=== PATIENT | male | born 1940 | race Caucasian/White ===

== ENCOUNTER 2022-03-13 09:39 | Inpatient (IN) | payer OTHER, MEDICARE ==
[~2022-03-13] VITALS: Ht 182.9 cm; Wt 81.8 kg
[~2022-03-13 09:39] MED LIST: ASA81 PO; CARV25TA55 PO; CLOP75TA2 PO; FENO160 PO; GABA-531 PO; HYDR-4039 PO; LEVO500T20 PO; LIP20 PO; NOR10 PO; TRIH2TAB3 PO; VALS320T2 PO
[2022-03-13 10:06] VITALS: BP_SYST 113
[2022-03-13 10:26] LABS: BASOPHILS # (AUTO) 0.1 K/uL (0.0-0.2); BASOPHILS % (AUTO) 0.9 % (0.0-2.0); EOSINOPHILS # (AUTO) 0.1 K/uL (0.0-0.4); EOSINOPHILS % (AUTO) 0.8 % (0.0-4.0); HEMATOCRIT 41.1 % (36-54); HEMOGLOBIN 13.3 g/dL (14.0-18.0); LYMPHOCYTES % (AUTO) 8.6 % (20.5-51.5); MEAN CORPUSCULAR HEMOGLOBIN 29 pg (27-31); MEAN CORPUSCULAR HGB CONC 32 % (32-36); MEAN CORPUSCULAR VOLUME 89 fL (79.0-98.0); MONOCYTES # (AUTO) 0.5 K/uL (0.0-1.0); MONOCYTES % (AUTO) 4.2 % (1.7-9.3); NEUTROPHILS # (AUTO) 10.2 K/uL (1.8-7.7); NEUTROPHILS % (AUTO) 85.5 % (40.0-70.0); PLATELET COUNT (AUTO) 342 K/uL (130-430); RED BLOOD CELL COUNT(AUTO) 4.64 MIL/uL (4.2-6.2); RED CELL DISTRIBUTION WIDTH 15.9 % (9.0-15.0); WHITE BLOOD COUNT (AUTO) 11.9 K/uL (4.8-10.8)
[2022-03-13 10:52] LABS: ANION GAP 9 (5-15); CALCIUM 9.1 mg/dL (8.4-11.0); CHLORIDE 103 mmol/L (98-107); CREATININE 1.59 mg/dL (0.55-1.30); GLUCOSE 240 mg/dL (70-99); UREA NITROGEN, BLOOD 24 mg/dL (8-21)
[2022-03-13 11:10] LABS: ALANINE AMINOTRANSFERASE 30 U/L (12-78); ALBUMIN 3.4 g/dL (3.4-4.8); ASPARTATE AMINOTRANSFERASE 29 U/L (10-37); TOTAL BILIRUBIN 0.5 mg/dL (0.0-1.0)
[2022-03-13] MEDS ORDERED: CLOP75TA32 PO (11:17)
[2022-03-13] MEDS ORDERED: VALS80TA31 PO (11:17)
[2022-03-13] MEDS ORDERED: ATOR20TA64 PO (11:17)
[2022-03-13] MEDS ORDERED: METF-381 PO (11:17)
[2022-03-13] MEDS ORDERED: CARV6.2554 PO (11:17)
[2022-03-13] MEDS ORDERED: ASPI-1457 PO (11:17)
[2022-03-13 11:22] LABS: PROTHROMBIN TIME 10.9 SECS (9.5-12.5)
[2022-03-13] MEDS ORDERED: FUROSEMIDE 20 MG/2 ML VIAL IVP ONE (11:30)
[2022-03-13] MEDS ORDERED: MORPHINE 4 MG INJ. 4 MG/ML VIAL IVP ONE (11:30)
[2022-03-13] MEDS ORDERED: cloNIDine HCL 0.1 MG TABLET PO ONE (11:30)
[2022-03-13] MEDS ORDERED: ASPIRIN 81 MG TABLET(ECOTRIN) PO ONE (11:30)
[2022-03-13] MEDS ORDERED: D5W 1,000 ML IV PRN (14:00)
[2022-03-13] MEDS ORDERED: GLUCOSE (DEXTROSE) ORAL GEL -Adults PO PRN (14:00)
[2022-03-13] MEDS ORDERED: DEXTROSE 50%-WATER 50 ML DISP.SYRIN IVP PRN (14:00)
[2022-03-13 15:00] VITALS: BP_SYST 159
[2022-03-13] MEDS: INSULIN REGULAR, HUMAN 100 UNITS/ML, 3 ML VIAL (humuLIN R) SUBCUT PRN ×2 (18:05→21:13)
[2022-03-13] MEDS ORDERED: ACETAMINOPHEN 325 MG TABLET PO PRN (18:45)
[2022-03-13] MEDS ORDERED: LevALBUTEROL HCL 1.25 MG/0.5 ML *CONC.* VIAL.NEB (XOPENEX CONC.) INH PRN (18:45)
[2022-03-13] MEDS ORDERED: INSULIN REGULAR, HUMAN 100 UNITS/ML, 3 ML VIAL (humuLIN R) SUBCUT PRN (18:45)
[2022-03-13 18:51] VITALS: BP_SYST 156
[2022-03-13 20:00] VITALS: BP_SYST 150
[2022-03-13] MEDS ORDERED: LevALBUTEROL HCL 1.25 MG/0.5 ML *CONC.* VIAL.NEB (XOPENEX CONC.) INH ONE (20:00)
[2022-03-13] MEDS: GABAPENTIN 300 MG CAPSULE PO SCH (21:01)
[2022-03-13] MEDS: hydrALAZINE HCL 25 MG TABLET PO SCH (21:04)
[2022-03-13] MEDS: CARVEDILOL 25 MG TABLET (COREG) PO SCH (21:05)
[2022-03-13] MEDS: ENOXAPARIN SODIUM 30 MG/0.3 ML SYRINGE SUBCUT SCH (21:06)
[2022-03-13] MEDS: cefTRIAXone 1 GM in D5W 50 ML IV SCH (21:19)
[2022-03-13] MEDS: AZITHROMYCIN 500 MG in NS 250 ML IV SCH (21:19)
[2022-03-13] MEDS: TRIHEXYPHENIDYL HCL 2 MG TABLET (ARTANE) PO SCH (23:42)
[2022-03-13] MEDS: FUROSEMIDE 20 MG/2 ML VIAL IVP SCH (23:42)
[2022-03-14 00:11] VITALS: BP_SYST 104
[2022-03-14] MEDS: LevALBUTEROL HCL 1.25 MG/0.5 ML *CONC.* VIAL.NEB (XOPENEX CONC.) INH SCH ×3 (07:23→20:36)
[2022-03-14 07:32] LABS: BASOPHILS # (AUTO) 0.1 K/uL (0.0-0.2); EOSINOPHILS # (AUTO) 0.1 K/uL (0.0-0.4); HEMATOCRIT 36.8 % (36-54); HEMOGLOBIN 11.7 g/dL (14.0-18.0); LYMPHOCYTES # (AUTO) 1.3 K/uL (1.0-5.5); LYMPHOCYTES % (AUTO) 20.8 % (20.5-51.5); MEAN CORPUSCULAR HEMOGLOBIN 28 pg (27-31); MEAN CORPUSCULAR HGB CONC 32 % (32-36); MEAN CORPUSCULAR VOLUME 88 fL (79.0-98.0); MONOCYTES # (AUTO) 0.5 K/uL (0.0-1.0); MONOCYTES % (AUTO) 7.1 % (1.7-9.3); NEUTROPHILS # (AUTO) 4.4 K/uL (1.8-7.7); NEUTROPHILS % (AUTO) 69.1 % (40.0-70.0); PLATELET COUNT (AUTO) 306 K/uL (130-430); RED BLOOD CELL COUNT(AUTO) 4.18 MIL/uL (4.2-6.2); RED CELL DISTRIBUTION WIDTH 15.8 % (9.0-15.0); WHITE BLOOD COUNT (AUTO) 6.4 K/uL (4.8-10.8)
[2022-03-14 07:59] LABS: ANION GAP 6 (5-15); CALCIUM 8.6 mg/dL (8.4-11.0); CHLORIDE 104 mmol/L (98-107); CREATININE 1.58 mg/dL (0.55-1.30); GLUCOSE 118 mg/dL (70-99); UREA NITROGEN, BLOOD 24 mg/dL (8-21)
[2022-03-14 08:00] VITALS: BP_SYST 148
[2022-03-14 08:10] LABS: ALANINE AMINOTRANSFERASE 25 U/L (12-78); ALBUMIN 2.7 g/dL (3.4-4.8); ASPARTATE AMINOTRANSFERASE 22 U/L (10-37); TOTAL BILIRUBIN 0.4 mg/dL (0.0-1.0)
[2022-03-14] MEDS ORDERED: VALSARTAN 160 MG TABLET (DIOVAN) PO SCH (09:00)
[2022-03-14] MEDS: TRIHEXYPHENIDYL HCL 2 MG TABLET (ARTANE) PO SCH ×2 (09:03→20:49)
[2022-03-14] MEDS: hydrALAZINE HCL 25 MG TABLET PO SCH ×2 (09:04→20:48)
[2022-03-14] MEDS: ASPIRIN 81 MG TAB.CHEW PO SCH (09:05)
[2022-03-14] MEDS: FENOFIBRATE 160 MG TABLET PO SCH (09:06)
[2022-03-14] MEDS: GABAPENTIN 300 MG CAPSULE PO SCH ×2 (09:06→20:47)
[2022-03-14] MEDS: ATORVASTATIN 20 MG TABLET PO SCH (09:07)
[2022-03-14] MEDS: LOSARTAN POTASSIUM 50 MG TABLET (COZAAR) PO SCH (09:07)
[2022-03-14] MEDS: amLODIPine BESYLATE 10 MG TABLET PO SCH (09:08)
[2022-03-14] MEDS: CLOPIDOGREL BISULFATE 75 MG TABLET PO SCH (09:09)
[2022-03-14] MEDS: CARVEDILOL 25 MG TABLET (COREG) PO SCH ×2 (09:10→20:49)
[2022-03-14 12:00] VITALS: BP_SYST 131
[2022-03-14] MEDS: FUROSEMIDE 20 MG/2 ML VIAL IVP SCH (12:29)
[2022-03-14] MEDS: INSULIN REGULAR, HUMAN 100 UNITS/ML, 3 ML VIAL (humuLIN R) SUBCUT PRN ×3 (12:36→21:03)
[2022-03-14 16:37] VITALS: BP_SYST 132
[2022-03-14 20:00] VITALS: BP_SYST 130
[2022-03-14] MEDS: cefTRIAXone 1 GM in D5W 50 ML IV SCH (20:41)
[2022-03-14] MEDS: ENOXAPARIN SODIUM 30 MG/0.3 ML SYRINGE SUBCUT SCH (20:49)
[2022-03-14] MEDS: AZITHROMYCIN 500 MG in NS 250 ML IV SCH (21:06)
[2022-03-15] MEDS: FUROSEMIDE 20 MG/2 ML VIAL IVP SCH (00:16)
[2022-03-15 00:21] VITALS: BP_SYST 115
[2022-03-15] MEDS: LevALBUTEROL HCL 1.25 MG/0.5 ML *CONC.* VIAL.NEB (XOPENEX CONC.) INH SCH ×3 (07:09→19:50)
[2022-03-15 07:43] VITALS: BP_SYST 146
[2022-03-15] MEDS: GABAPENTIN 300 MG CAPSULE PO SCH ×2 (08:14→21:33)
[2022-03-15] MEDS: FENOFIBRATE 160 MG TABLET PO SCH (08:14)
[2022-03-15] MEDS: TRIHEXYPHENIDYL HCL 2 MG TABLET (ARTANE) PO SCH ×2 (08:14→21:31)
[2022-03-15] MEDS: ASPIRIN 81 MG TAB.CHEW PO SCH (08:14)
[2022-03-15] MEDS: ATORVASTATIN 20 MG TABLET PO SCH (08:15)
[2022-03-15] MEDS: CLOPIDOGREL BISULFATE 75 MG TABLET PO SCH (08:15)
[2022-03-15] MEDS: amLODIPine BESYLATE 10 MG TABLET PO SCH (08:16)
[2022-03-15] MEDS: CARVEDILOL 25 MG TABLET (COREG) PO SCH ×2 (08:16→21:33)
[2022-03-15] MEDS: LOSARTAN POTASSIUM 50 MG TABLET (COZAAR) PO SCH (08:17)
[2022-03-15] MEDS: hydrALAZINE HCL 25 MG TABLET PO SCH ×2 (08:18→21:32)
[2022-03-15 08:34] LABS: BASOPHILS # (AUTO) 0.1 K/uL (0.0-0.2); EOSINOPHILS # (AUTO) 0.2 K/uL (0.0-0.4); EOSINOPHILS % (AUTO) 2.3 % (0.0-4.0); HEMATOCRIT 40.1 % (36-54); LYMPHOCYTES # (AUTO) 1.4 K/uL (1.0-5.5); LYMPHOCYTES % (AUTO) 17.7 % (20.5-51.5); MEAN CORPUSCULAR HEMOGLOBIN 29 pg (27-31); MEAN CORPUSCULAR HGB CONC 33 % (32-36); MEAN CORPUSCULAR VOLUME 89 fL (79.0-98.0); MONOCYTES # (AUTO) 0.5 K/uL (0.0-1.0); MONOCYTES % (AUTO) 6.6 % (1.7-9.3); NEUTROPHILS # (AUTO) 5.5 K/uL (1.8-7.7); NEUTROPHILS % (AUTO) 72.4 % (40.0-70.0); PLATELET COUNT (AUTO) 308 K/uL (130-430); RED BLOOD CELL COUNT(AUTO) 4.52 MIL/uL (4.2-6.2); RED CELL DISTRIBUTION WIDTH 15.9 % (9.0-15.0); WHITE BLOOD COUNT (AUTO) 7.6 K/uL (4.8-10.8)
[2022-03-15 08:45] LABS: ANION GAP 10 (5-15); CALCIUM 8.7 mg/dL (8.4-11.0); CHLORIDE 100 mmol/L (98-107); GLUCOSE 109 mg/dL (70-99); UREA NITROGEN, BLOOD 36 mg/dL (8-21)
[2022-03-15 08:52] LABS: ALANINE AMINOTRANSFERASE 22 U/L (12-78); ALBUMIN 2.9 g/dL (3.4-4.8); ASPARTATE AMINOTRANSFERASE 21 U/L (10-37); TOTAL BILIRUBIN 0.4 mg/dL (0.0-1.0)
[2022-03-15] MEDS ORDERED: FUROSEMIDE 20 MG TABLET PO ONE (10:15)
[2022-03-15] MEDS: INSULIN REGULAR, HUMAN 100 UNITS/ML, 3 ML VIAL (humuLIN R) SUBCUT PRN ×3 (11:46→21:39)
[2022-03-15 11:55] VITALS: BP_SYST 110
[2022-03-15 18:15] VITALS: BP_SYST 136
[2022-03-15 20:00] VITALS: BP_SYST 127
[2022-03-15] MEDS: cefTRIAXone 1 GM in D5W 50 ML IV SCH (21:15)
[2022-03-15] MEDS: ENOXAPARIN SODIUM 30 MG/0.3 ML SYRINGE SUBCUT SCH (21:33)
[2022-03-15] MEDS: AZITHROMYCIN 500 MG in NS 250 ML IV SCH (21:35)
[2022-03-16] MEDS: LevALBUTEROL HCL 1.25 MG/0.5 ML *CONC.* VIAL.NEB (XOPENEX CONC.) INH SCH ×4 (01:39→20:09)
[2022-03-16 06:00] VITALS: BP_SYST 112
[2022-03-16 08:00] VITALS: BP_SYST 115
[2022-03-16 08:14] LABS: BASOPHILS % (AUTO) 0.6 % (0.0-2.0); EOSINOPHILS # (AUTO) 0.2 K/uL (0.0-0.4); EOSINOPHILS % (AUTO) 2.9 % (0.0-4.0); HEMATOCRIT 34.8 % (36-54); HEMOGLOBIN 11.4 g/dL (14.0-18.0); LYMPHOCYTES % (AUTO) 12.2 % (20.5-51.5); MEAN CORPUSCULAR HEMOGLOBIN 29 pg (27-31); MEAN CORPUSCULAR HGB CONC 33 % (32-36); MEAN CORPUSCULAR VOLUME 87 fL (79.0-98.0); MONOCYTES # (AUTO) 0.5 K/uL (0.0-1.0); NEUTROPHILS # (AUTO) 6.1 K/uL (1.8-7.7); NEUTROPHILS % (AUTO) 77.3 % (40.0-70.0); PLATELET COUNT (AUTO) 297 K/uL (130-430); RED BLOOD CELL COUNT(AUTO) 3.99 MIL/uL (4.2-6.2); RED CELL DISTRIBUTION WIDTH 15.6 % (9.0-15.0); WHITE BLOOD COUNT (AUTO) 7.8 K/uL (4.8-10.8)
[2022-03-16 08:51] LABS: ANION GAP 8 (5-15); CALCIUM 8.7 mg/dL (8.4-11.0); CHLORIDE 104 mmol/L (98-107); CREATININE 1.97 mg/dL (0.55-1.30); GLUCOSE 111 mg/dL (70-99); UREA NITROGEN, BLOOD 43 mg/dL (8-21)
[2022-03-16] MEDS: TRIHEXYPHENIDYL HCL 2 MG TABLET (ARTANE) PO SCH ×2 (09:00→21:00)
[2022-03-16 10:04] VITALS: BP_SYST 112
[2022-03-16] MEDS: ASPIRIN 81 MG TAB.CHEW PO SCH (10:50)
[2022-03-16] MEDS: FUROSEMIDE 20 MG TABLET PO SCH (10:50)
[2022-03-16] MEDS: LOSARTAN POTASSIUM 50 MG TABLET (COZAAR) PO SCH (10:51)
[2022-03-16] MEDS: FENOFIBRATE 160 MG TABLET PO SCH (10:52)
[2022-03-16] MEDS: GABAPENTIN 300 MG CAPSULE PO SCH ×2 (10:52→23:12)
[2022-03-16] MEDS: ATORVASTATIN 20 MG TABLET PO SCH (10:52)
[2022-03-16] MEDS: CLOPIDOGREL BISULFATE 75 MG TABLET PO SCH (10:53)
[2022-03-16] MEDS: CARVEDILOL 25 MG TABLET (COREG) PO SCH ×2 (10:53→23:14)
[2022-03-16] MEDS: amLODIPine BESYLATE 10 MG TABLET PO SCH (10:54)
[2022-03-16] MEDS: hydrALAZINE HCL 25 MG TABLET PO SCH ×2 (10:54→23:13)
[2022-03-16 11:34] VITALS: BP_SYST 150
[2022-03-16 16:51] VITALS: BP_SYST 148
[2022-03-16] MEDS: INSULIN REGULAR, HUMAN 100 UNITS/ML, 3 ML VIAL (humuLIN R) SUBCUT PRN ×2 (16:55→23:21)
[2022-03-16 20:00] VITALS: BP_SYST 146
[2022-03-16] MEDS: cefTRIAXone 1 GM in D5W 50 ML IV SCH (23:05)
[2022-03-16] MEDS: ENOXAPARIN SODIUM 30 MG/0.3 ML SYRINGE SUBCUT SCH (23:16)
[2022-03-16] MEDS: AZITHROMYCIN 500 MG in NS 250 ML IV SCH (23:42)
[2022-03-17] VITALS: BP_SYST 147
[2022-03-17] MEDS: LevALBUTEROL HCL 1.25 MG/0.5 ML *CONC.* VIAL.NEB (XOPENEX CONC.) INH SCH ×4 (01:44→20:30)
[2022-03-17 08:00] VITALS: BP_SYST 168
[2022-03-17] MEDS: FENOFIBRATE 160 MG TABLET PO SCH (10:13)
[2022-03-17] MEDS: ASPIRIN 81 MG TAB.CHEW PO SCH (10:14)
[2022-03-17] MEDS: ATORVASTATIN 20 MG TABLET PO SCH (10:14)
[2022-03-17] MEDS: amLODIPine BESYLATE 10 MG TABLET PO SCH (10:14)
[2022-03-17] MEDS: CLOPIDOGREL BISULFATE 75 MG TABLET PO SCH (10:14)
[2022-03-17] MEDS: LOSARTAN POTASSIUM 50 MG TABLET (COZAAR) PO SCH (10:15)
[2022-03-17] MEDS: GABAPENTIN 300 MG CAPSULE PO SCH ×2 (10:15→20:48)
[2022-03-17] MEDS: CARVEDILOL 25 MG TABLET (COREG) PO SCH ×2 (10:16→20:48)
[2022-03-17] MEDS: hydrALAZINE HCL 25 MG TABLET PO SCH ×2 (10:17→20:49)
[2022-03-17] MEDS: FUROSEMIDE 20 MG TABLET PO SCH (10:17)
[2022-03-17] MEDS: TRIHEXYPHENIDYL HCL 2 MG TABLET (ARTANE) PO SCH ×2 (12:23→20:48)
[2022-03-17] MEDS: INSULIN REGULAR, HUMAN 100 UNITS/ML, 3 ML VIAL (humuLIN R) SUBCUT PRN ×3 (12:25→21:07)
[2022-03-17 16:20] VITALS: BP_SYST 116
[2022-03-17 20:00] VITALS: BP_SYST 127
[2022-03-17] MEDS: cefTRIAXone 1 GM in D5W 50 ML IV SCH (20:48)
[2022-03-17] MEDS: ENOXAPARIN SODIUM 30 MG/0.3 ML SYRINGE SUBCUT SCH (20:49)
[2022-03-17] MEDS: AZITHROMYCIN 500 MG in NS 250 ML IV SCH (20:59)
[2022-03-18] VITALS: BP_SYST 98
[2022-03-18] MEDS: LevALBUTEROL HCL 1.25 MG/0.5 ML *CONC.* VIAL.NEB (XOPENEX CONC.) INH SCH ×3 (01:52→20:25)
[2022-03-18 07:11] LABS: BASOPHILS % (AUTO) 0.4 % (0.0-2.0); EOSINOPHILS # (AUTO) 0.2 K/uL (0.0-0.4); EOSINOPHILS % (AUTO) 1.6 % (0.0-4.0); HEMATOCRIT 35.1 % (36-54); HEMOGLOBIN 11.3 g/dL (14.0-18.0); LYMPHOCYTES % (AUTO) 10.5 % (20.5-51.5); MEAN CORPUSCULAR HEMOGLOBIN 28 pg (27-31); MEAN CORPUSCULAR HGB CONC 32 % (32-36); MEAN CORPUSCULAR VOLUME 88 fL (79.0-98.0); MONOCYTES # (AUTO) 0.9 K/uL (0.0-1.0); MONOCYTES % (AUTO) 9.9 % (1.7-9.3); NEUTROPHILS # (AUTO) 7.1 K/uL (1.8-7.7); NEUTROPHILS % (AUTO) 77.6 % (40.0-70.0); PLATELET COUNT (AUTO) 256 K/uL (130-430); RED BLOOD CELL COUNT(AUTO) 3.99 MIL/uL (4.2-6.2); RED CELL DISTRIBUTION WIDTH 15.9 % (9.0-15.0); WHITE BLOOD COUNT (AUTO) 9.2 K/uL (4.8-10.8)
[2022-03-18 07:46] LABS: ALANINE AMINOTRANSFERASE 22 U/L (12-78); ALBUMIN 2.7 g/dL (3.4-4.8); ANION GAP 10 (5-15); ASPARTATE AMINOTRANSFERASE 23 U/L (10-37); CALCIUM 8.6 mg/dL (8.4-11.0); CHLORIDE 103 mmol/L (98-107); CREATININE 1.79 mg/dL (0.55-1.30); GLUCOSE 112 mg/dL (70-99); TOTAL BILIRUBIN 0.3 mg/dL (0.0-1.0); UREA NITROGEN, BLOOD 37 mg/dL (8-21)
[2022-03-18 08:04] VITALS: BP_SYST 143
[2022-03-18] MEDS: ASPIRIN 81 MG TAB.CHEW PO SCH (08:31)
[2022-03-18] MEDS: FUROSEMIDE 20 MG TABLET PO SCH (08:31)
[2022-03-18] MEDS: TRIHEXYPHENIDYL HCL 2 MG TABLET (ARTANE) PO SCH ×2 (08:31→21:06)
[2022-03-18] MEDS: FENOFIBRATE 160 MG TABLET PO SCH (08:32)
[2022-03-18] MEDS: GABAPENTIN 300 MG CAPSULE PO SCH ×2 (08:32→20:50)
[2022-03-18] MEDS: ATORVASTATIN 20 MG TABLET PO SCH (08:32)
[2022-03-18] MEDS: amLODIPine BESYLATE 10 MG TABLET PO SCH (08:32)
[2022-03-18] MEDS: CLOPIDOGREL BISULFATE 75 MG TABLET PO SCH (08:32)
[2022-03-18] MEDS: CARVEDILOL 25 MG TABLET (COREG) PO SCH ×2 (08:33→20:53)
[2022-03-18] MEDS: LOSARTAN POTASSIUM 50 MG TABLET (COZAAR) PO SCH (08:33)
[2022-03-18] MEDS: hydrALAZINE HCL 25 MG TABLET PO SCH ×2 (08:34→20:53)
[2022-03-18 11:30] VITALS: BP_SYST 122
[2022-03-18] MEDS: INSULIN REGULAR, HUMAN 100 UNITS/ML, 3 ML VIAL (humuLIN R) SUBCUT PRN ×3 (11:57→21:01)
[2022-03-18 16:07] VITALS: BP_SYST 133
[2022-03-18 20:00] VITALS: BP_SYST 144
[2022-03-18] MEDS: ENOXAPARIN SODIUM 30 MG/0.3 ML SYRINGE SUBCUT SCH (20:56)
[2022-03-18] MEDS: cefTRIAXone 1 GM in D5W 50 ML IV SCH (21:08)
[2022-03-19] VITALS (7 sets, daily range): BP systolic 98–132
[2022-03-19] MEDS: LevALBUTEROL HCL 1.25 MG/0.5 ML *CONC.* VIAL.NEB (XOPENEX CONC.) INH SCH ×4 (01:00→20:16)
[2022-03-19] MEDS: FENOFIBRATE 160 MG TABLET PO SCH (09:20)
[2022-03-19] MEDS: GABAPENTIN 300 MG CAPSULE PO SCH ×2 (09:20→20:31)
[2022-03-19] MEDS: CARVEDILOL 25 MG TABLET (COREG) PO SCH ×2 (09:20→20:33)
[2022-03-19] MEDS: amLODIPine BESYLATE 10 MG TABLET PO SCH (09:21)
[2022-03-19] MEDS: hydrALAZINE HCL 25 MG TABLET PO SCH ×2 (09:21→20:32)
[2022-03-19] MEDS: ATORVASTATIN 20 MG TABLET PO SCH (09:22)
[2022-03-19] MEDS: FUROSEMIDE 20 MG TABLET PO SCH (09:22)
[2022-03-19] MEDS: ASPIRIN 81 MG TAB.CHEW PO SCH (09:22)
[2022-03-19] MEDS: CLOPIDOGREL BISULFATE 75 MG TABLET PO SCH (09:22)
[2022-03-19] MEDS: TRIHEXYPHENIDYL HCL 2 MG TABLET (ARTANE) PO SCH ×2 (09:23→20:31)
[2022-03-19] MEDS: LOSARTAN POTASSIUM 50 MG TABLET (COZAAR) PO SCH (09:23)
[2022-03-19] MEDS: INSULIN REGULAR, HUMAN 100 UNITS/ML, 3 ML VIAL (humuLIN R) SUBCUT PRN ×3 (12:09→20:35)
[2022-03-19] MEDS: ENOXAPARIN SODIUM 30 MG/0.3 ML SYRINGE SUBCUT SCH (20:31)
[2022-03-19] MEDS: cefTRIAXone 1 GM in D5W 50 ML IV SCH (20:38)
[2022-03-20] MEDS: LevALBUTEROL HCL 1.25 MG/0.5 ML *CONC.* VIAL.NEB (XOPENEX CONC.) INH SCH ×4 (01:00→19:51)
[2022-03-20 01:31] VITALS: BP_SYST 115
[2022-03-20 07:54] VITALS: BP_SYST 122
[2022-03-20] MEDS: FENOFIBRATE 160 MG TABLET PO SCH (08:43)
[2022-03-20] MEDS: GABAPENTIN 300 MG CAPSULE PO SCH ×2 (08:43→21:25)
[2022-03-20] MEDS: LOSARTAN POTASSIUM 50 MG TABLET (COZAAR) PO SCH (08:45)
[2022-03-20] MEDS: amLODIPine BESYLATE 10 MG TABLET PO SCH (08:45)
[2022-03-20] MEDS: hydrALAZINE HCL 25 MG TABLET PO SCH ×2 (08:45→21:25)
[2022-03-20] MEDS: ATORVASTATIN 20 MG TABLET PO SCH (08:45)
[2022-03-20] MEDS: FUROSEMIDE 20 MG TABLET PO SCH (08:46)
[2022-03-20] MEDS: CARVEDILOL 25 MG TABLET (COREG) PO SCH ×2 (08:46→21:25)
[2022-03-20] MEDS: CLOPIDOGREL BISULFATE 75 MG TABLET PO SCH (08:46)
[2022-03-20] MEDS: ASPIRIN 81 MG TAB.CHEW PO SCH (08:46)
[2022-03-20] MEDS: TRIHEXYPHENIDYL HCL 2 MG TABLET (ARTANE) PO SCH ×2 (08:48→21:25)
[2022-03-20 11:44] VITALS: BP_SYST 101
[2022-03-20] MEDS: INSULIN REGULAR, HUMAN 100 UNITS/ML, 3 ML VIAL (humuLIN R) SUBCUT PRN ×3 (12:49→21:27)
[2022-03-20 13:28] VITALS: BP_SYST 101
[2022-03-20] MEDS ORDERED: MENTHOL/ZINC OXIDE 113 GM OINT. TP PRN (14:45)
[2022-03-20] MEDS ORDERED: NYSTATIN 15 GM TOPICAL POWDER TP ONE (14:45)
[2022-03-20 15:43] VITALS: BP_SYST 124
[2022-03-20 20:00] VITALS: BP_SYST 126
[2022-03-20] MEDS ORDERED: NYSTATIN 15 GM TOPICAL POWDER TP SCH (21:00)
[2022-03-20] MEDS ORDERED: cefTRIAXone 1 GM in D5W 50 ML IV SCH (21:00)
[2022-03-20] MEDS: ENOXAPARIN SODIUM 30 MG/0.3 ML SYRINGE SUBCUT SCH (21:26)
[2022-03-21 00:37] VITALS: BP_SYST 91
[2022-03-21] MEDS: LevALBUTEROL HCL 1.25 MG/0.5 ML *CONC.* VIAL.NEB (XOPENEX CONC.) INH SCH ×2 (01:00→07:00)
[2022-03-21 09:18] VITALS: BP_SYST 139
[2022-03-21 09:21] VITALS: BP_SYST 139
[2022-03-21] MEDS ORDERED: ROCPM1 IV (09:35)
[2022-03-21] MEDS ORDERED: FURO-150 PO (09:35)
[2022-03-21] MEDS ORDERED: NYST15PO2 TP (09:39)
[2022-03-21] MEDS: GABAPENTIN 300 MG CAPSULE PO SCH (09:39)
[2022-03-21] MEDS: ATORVASTATIN 20 MG TABLET PO SCH (09:39)
[2022-03-21] MEDS: ASPIRIN 81 MG TAB.CHEW PO SCH (09:39)
[2022-03-21] MEDS: LOSARTAN POTASSIUM 50 MG TABLET (COZAAR) PO SCH (09:40)
[2022-03-21] MEDS: amLODIPine BESYLATE 10 MG TABLET PO SCH (09:44)
[2022-03-21] MEDS: hydrALAZINE HCL 25 MG TABLET PO SCH (09:44)
[2022-03-21] MEDS ORDERED: LOSA100T3 PO (09:44)
[2022-03-21] MEDS: CLOPIDOGREL BISULFATE 75 MG TABLET PO SCH (09:45)
[2022-03-21] MEDS: CARVEDILOL 25 MG TABLET (COREG) PO SCH (09:45)
[2022-03-21 11:21] VITALS: BP_SYST 120
== END 2022-03-21 12:00 | DRG 194 ==
LOC: SED 09:39 → STU 12:10 → SMU 03-20 13:03
PROVIDERS: ADMIT Family Medicine; ATTEND Family Medicine
DX: J18.9 Pneumonia, unspecified organism (principal); I50.40 Unspecified combined systolic (congestive) and diastolic (congestive) heart failure; I11.0 Hypertensive heart disease with heart failure; E11.9 Type 2 diabetes mellitus without complications; I25.10 Atherosclerotic heart disease of native coronary artery without angina pectoris; E78.5 Hyperlipidemia, unspecified; Z20.822 Contact with and (suspected) exposure to COVID-19; Z87.891 Personal history of nicotine dependence; Z79.82 Long term (current) use of aspirin; Z79.899 Other long term (current) drug therapy
CPT/HCPCS: 36415; 71045; 80048; 80053; 82550; 82962; 83605; 83735; 83880; 84484; 85025; 85610-TC; 85730-TC; 93005; 93306; 94640; 94760; 96374; 96375; 99285; G0378; J0456; J0696; J1650; J1940; J2270; J7040; J7050; J7060; J7612